=== PATIENT | female | born 1985 | race African-American/Black ===

== ENCOUNTER 2016-12-25 03:27 | Emergency (ER) | payer OTHER ==
[~2016-12-25] VITALS: Ht 162.6 cm; Wt 95.3 kg
[2016-12-25 03:51] LABS: URINE BILIRUBIN NEGATIVE (Negative); URINE BLOOD 1+ (Negative); URINE COLOR YELLOW; URINE GLUCOSE-RANDOM* NEGATIVE (Negative); URINE KETONES NEGATIVE (Negative); URINE LEUKOCYTES-REFLEX NEGATIVE (Negative); URINE PROTEIN (DIPSTICK) NEGATIVE (Negative)
[2016-12-25 03:53] LABS: ABSOLUTE NEUTROPHILS 4.5 thou/uL (1.4-8.2); BASOPHILS 1.4 % (0.0-2.0); EOSINOPHILS 1.6 % (0.0-3.0); HEMATOCRIT 40.3 % (37.0-47.0); HEMOGLOBIN 13.6 gm/dL (12.0-15.0); LYMPHOCYTES 36.9 % (24.0-44.0); MCH 32.1 pg (26.0-34.0); MCHC 33.8 g/dL (28.0-37.0); MCV 94.8 fL (80.0-100.0); MONOCYTES 11.5 % (1.0-8.0); PLATELET COUNT 371 thou/uL (150-400); POLYS 48.6 % (36.0-66.0); RBC 4.25 mil/uL (4.20-5.00); WBC 9.4 thou/uL (4.0-11.0)
[2016-12-25 04:00] LABS: CALCIUM 9.1 mg/dL (8.5-10.1); CREATININE 1.1 mg/dL (0.6-1.0); POTASSIUM 3.9 mmol/L (3.5-5.1)
[2016-12-25 04:02] LABS: MANUAL DIFF NO
[2016-12-25 04:05] LABS: ALBUMIN 3.5 g/dL (3.4-5.0); TOTAL BILIRUBIN 0.2 mg/dL (<0.1-1.0)
[2016-12-25 04:12] LABS: CASTS None Seen /LPF (None Seen); CRYSTALS None Seen /LPF (None Seen); SQUAMOUS 0-3 Few /LPF (0-3); URINE RBC 0-2 Rare /HPF (0-2); URINE WBC-REFLEX 0-5 Rare /HPF (0-5)
[2016-12-25 04:13] LABS: AMORPHOUS URATES Few /LPF (None Seen)
[2016-12-25] MEDS ORDERED: ZOFRAN ODT8 MG PO (04:41)
[2016-12-25] MEDS ORDERED: TRAMADOL 50 MG50 MG PO (04:41)
[2016-12-25] MEDS ORDERED: NAPROSYN500 MG PO (04:41)
[2016-12-25 04:45] VITALS: BP 138/72
== END 2016-12-25 04:55 | disposition home or self-care (01) ==
LOC: ER 03:27
PROVIDERS: Emergency Medicine
DX: K59.00 Constipation, unspecified (principal)

== ENCOUNTER 2019-01-25 20:22 | Emergency (ER) | payer OTHER ==
[~2019-01-25] VITALS: Ht 162.6 cm; Wt 88.5 kg
[~2019-01-25 20:22] MED LIST: NAPROSYN500 MG PO; TRAMADOL 50 MG50 MG PO; ZOFRAN ODT8 MG PO
[2019-01-25 22:23] VITALS: BP 120/70
== END 2019-01-25 22:34 | disposition home or self-care (01) ==
LOC: ER 20:22
DX: F16.10 Hallucinogen abuse, uncomplicated (principal); F17.210 Nicotine dependence, cigarettes, uncomplicated